=== PATIENT | female | born 1935 | race Caucasian/White ===

== ENCOUNTER 2024-09-15 02:37 | Emergency (ER) | payer MEDICARE, OTHER ==
[2024-09-15] MEDS: Oxymetazoline 0.05% Nasal Spray 30 ML Bottle NAS ONE (03:46)
== END 2024-09-15 05:00 | disposition home or self-care (01) ==
LOC: JD.ED 02:37
DX: R04.0 Epistaxis (principal); I11.0 Hypertensive heart disease with heart failure; I50.9 Heart failure, unspecified; E78.00 Pure hypercholesterolemia, unspecified; J45.909 Unspecified asthma, uncomplicated; E11.9 Type 2 diabetes mellitus without complications; E66.9 Obesity, unspecified; Z86.16 Personal history of COVID-19
CPT/HCPCS: 99283